=== PATIENT | male | born 1995 | race Caucasian/White ===

== ENCOUNTER 2020-05-11 19:25 | Emergency (ER) | payer BC ==
[2020-05-11 19:31] VITALS: BP 135/71; PULSE 95; RESP 20; TEMP 98.6
--- NOTE | 2020-05-11 19:47 | ED ---
General Adult HPI - General Chief complaint: Urogenital Stated complaint: Male Time Seen by Provider: 05/11/20 19:32 Source: patient Mode of arrival: ambulatory Limitations: no limitations - History of Present Illness Initial comments: Dictation was produced using easy2map dictation software. please excuse any grammatical, word or spelling errors. This patient was cared for during a federal and state declared state of emergency secondary to Covid 19 Chief Complaint: 24-year-old presents with penile lesions History of Present Illness: Patient is 24-year-old male who presents with penile lesions. He states these lesions have been there for approximately 8 weeks. 8 weeks ago patient had sexual contact with a female. He states that since then he's been developing small punctate red lesions over the dorsal portion of his penis. Patient reports that these lesions do not cross many distress. There is no pain. Denies any dysuria. Patient reports that these lesions appear loss for several days go away and then returns. Patient has history of psoriasis. He tried to put psoriasis cream on them. The ROS documented in this emergency department record has been reviewed and confirmed by me. Those systems with pertinent positive or negative responses have been documented in the HPI. All other systems are other negative and/or noncontributory. PHYSICAL EXAM: General Impression: Alert and oriented x3, not in acute distress HEENT: Normocephalic atraumatic, extra-ocular movements intact, pupils equal and reactive to light bilaterally, mucous membranes moist. Cardiovascular: Heart regular rate and rhythm Chest: Able to complete full sentences, no retractions, no tachypnea Abdomen: abdomen soft, non-tender, non-distended, no organomegaly Musculoskeletal: Pulses present and equal in all extremities, no peripheral edema Motor: no focal deficits noted Neurological: CN II-XII grossly intact, no focal motor or sensory deficits noted Skin: Intact with no visualized rashes Psych: Normal affect and mood : Small nonulcerated punctate erythematous lesions over the dorsal portion of his penis. No scrotal lesions. 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 All signs upon arrival are within acceptable limits. Discussed with patient that his symptoms could also be secondary to genital herpes however he would be a very atypical presentation. Patient is agreeable for trial of acyclovir. He denies any dysuria. Urinalysis showed rare urine bacteria. Small blood. Discussed with patient that I would recommend he be treated for sexually transmitted disease. Patient treated with azithromycin, ceftriaxone and Flagyl. Patient told to follow-up with his STD results and 48 hours. He is given outpatient referral to primary care physician. - Related Data Previous Rx's Medication Instructions Recorded Acyclovir 400 mg PO Q8H 7 Days #21 tablet 05/11/20 Allergies Allergy/AdvReac Type Severity Reaction Status Date / Time No Known Allergies Allergy Verified 05/11/20 19:30 Review of Systems ROS Statement: Those systems with pertinent positive or pertinent negative responses have been documented in the HPI. ROS Other: All systems not noted in ROS Statement are negative. Past Medical History Past Medical History: No Reported History History of Any Multi-Drug Resistant Organisms: None Reported Past Surgical History: No Surgical Hx Reported Past Psychological History: No Psychological Hx Reported Smoking Status: Current every day smoker Past Alcohol Use History: Rare Past Drug Use History: None Reported General Exam Limitations: no limitations Course Vital Signs 05/11/20 19:26 Temperature 98.6 F Pulse Rate 95 Respiratory 20 Rate Blood Pressure 135/71 O2 Sat by Pulse 97 Oximetry Medical Decision Making - Lab Data Lab Results 05/11/20 Range/Units 19:53 Urine Color Yellow Urine Appearance Cloudy (Clear) Urine pH 7.0 (5.0-8.0) Ur Specific [place] 1.022 (1.001-1.035) Urine Protein Negative (Negative) Urine Glucose (UA) Negative (Negative) Urine Ketones Negative (Negative) Urine Blood Small H (Negative) Urine Nitrite Negative (Negative) Urine Bilirubin Negative (Negative) Urine Urobilinogen <2.0 (<2.0) mg/dL Ur Leukocyte Esterase Negative (Negative) Urine RBC 3 (0-5) /hpf Urine WBC 3 (0-5) /hpf Amorphous Sediment Rare H (None) /hpf Urine Bacteria Rare H (None) /hpf Urine Mucus Rare H (None) /hpf Disposition Clinical Impression: STD (male) Disposition: HOME SELF-CARE Instructions (If sedation given, give patient instructions): Sexually Transmitted Diseases (ED), Genital Warts (ED) Additional Instructions: Please follow with primary care physician for outpatient management of symptoms. You're given referral to a primary care physician. Please call the office and schedule an appointment.Please refrain from any sexual activity until you results come back. He can axis or results under my Annie chart. Strongly advised not to have any sort of sexual relations until you're lesions are evaluated by primary care physician. This possible that you may spread disease to another individual especially if you're having persistent symptoms. Prescriptions: Acyclovir 400 mg PO Q8H 7 Days #21 tablet Is patient prescribed a controlled substance at d/c from ED?: No Referrals: Shahrzad Almanzar MD [STAFF PHYSICIAN] - 1-2 days Time of Disposition: 19:46
[2020-05-11] MEDS ORDERED: metroNIDAZOLE 500 MG TAB PO STA (20:03)
[2020-05-11] MEDS ORDERED: AZITHROMYCIN 500 MG TAB PO STA (20:03)
[2020-05-11] MEDS ORDERED: cefTRIAXone 250 MG VIAL IM STA (20:03)
[2020-05-11 20:13] LABS: Amorphous Sediment,Urine Rare /hpf; Appearance,Urine Cloudy (Clear); Bacteria,Urine Rare /hpf; Bilirubin,Urine Negative (Negative); Blood,Urine Small (Negative); Color,Urine Yellow; Glucose,Urine (UA) Negative (Negative); Ketones,Urine Negative (Negative); Leukocyte Esterase,Urine Negative (Negative); Mucus,Urine Rare /hpf; Nitrite,Urine Negative (Negative); Protein,Urine Negative (Negative); RBC,Urine 3 /hpf (0-5); Specific Gravity,Urine 1.022 (1.001-1.035); Urobilinogen,Urine <2.0 mg/dL (<2.0); WBC,Urine 3 /hpf (0-5)
== END 2020-05-11 20:15 | disposition home or self-care (01) ==
LOC: EC 19:25
DX: A64 Unspecified sexually transmitted disease (principal); F17.200 Nicotine dependence, unspecified, uncomplicated
CPT/HCPCS: 81001; 87491; 87591; 96372; 99283; J0696